=== PATIENT | male | born 1950 | race Caucasian/White ===

== ENCOUNTER → 2021-03-25 | Outpatient (CLI) | payer OTHER | LOC: M.RAD 11:23 | PROVIDERS: ATTEND Chiropractor | DX: M47.816 Spondylosis without myelopathy or radiculopathy, lumbar region (principal); M47.817 Spondylosis without myelopathy or radiculopathy, lumbosacral region; M25.78 Osteophyte, vertebrae; I70.0 Atherosclerosis of aorta ==